=== PATIENT | female | born 1965 | race Hispanic/Latino ===

== ENCOUNTER 2017-07-08 10:03 | Outpatient (CLI) | payer OTHER | END 2017-07-08 10:04 | disposition home or self-care (01) | LOC: BICMAMMO 10:03 | PROVIDERS: ATTEND Obstetrics & Gynecology | DX: Z12.31 Encounter for screening mammogram for malignant neoplasm of breast (principal) | CPT/HCPCS: 77063; 77067 ==

== ENCOUNTER 2018-01-17 13:58 | Observation (INO) | payer OTHER ==
[2018-01-17] MEDS ORDERED: Nitroglycerin 2% Ointment 1 INCH/1 GM Packet ONE (14:25)
[2018-01-17 14:39] LABS: #Basophils 0.1 thou/uL (0.0-0.2); #Eosinphils 0.1 thou/uL (0.0-0.7); #Lymphocytes 4.4 thou/uL (1.20-3.40); #Monocytes 0.7 thou/uL (0.11-0.59); #Neutrophils 4.9 thou/uL (1.40-6.50); %Basophils 1.2 % (0.0-1.0); %Eosinophils 0.7 % (0.0-10.0); %Lymphocytes 43.3 % (21.0-51.0); %Monocytes 6.5 % (0.0-10.0); %Neutrophils 48.3 % (42.0-75.0); Hemoglobin 15.4 g/dL (12.0-16.0); Mean Corpuscular HGB CONC 34.1 g/dL (32.0-36.0); Mean Corpuscular Hemoglobin 29.2 pg (27.0-31.0); Mean Corpuscular Volume 85.7 fL (78.0-98.0); Mean Platelet Volume 8.6 fL (7.4-10.4); Platelet Count 316 thou/uL (130-400); RBC Distribution Width 11.2 % (11.5-14.5); Red Blood Cell (RBC) Count 5.27 mill/uL (4.20-5.40); White Blood Cell (WBC) Count 10.2 thou/uL (4.8-10.8)
[2018-01-17 14:40] LABS: ALT (SGPT) 27 U/L (8-55); AST (SGOT) 29 U/L (5-34); Albumin 4.6 g/dL (3.5-5.0); Alkaline Phosphatase 92 U/L (40-150); Anion Gap 17 mmol/L (10-20); BUN (Urea Nitrogen) 13 mg/dL (9.8-20.1); Bilirubin, Total 0.6 mg/dL (0.2-1.2); Calc. Creatinine Clearance 0 mL/min (70-130); Calcium 10.4 mg/dL (7.8-10.44); Carbon Dioxide 26 mmol/L (22-29); Chloride 99 mmol/L (98-107); Estimated GFR-MDRD 76; Globulin 3.8 g/dL (2.4-3.5); Glucose 114 mg/dL (70-105); Lipase 20 U/L (8-78); Potassium 3.3 mmol/L (3.5-5.1); Protein, Total 8.4 g/dL (6.0-8.3); Sodium 139 mmol/L (136-145)
[2018-01-17 14:41] LABS: CKMB 1.7 ng/mL (0-6.6); Troponin I Less than 0.010 ng/mL (< 0.028)
--- NOTE | 2018-01-17 15:40 | RAD ---
PORTABLE CHEST 01/17/18 PROVIDED CLINICAL HISTORY: Chest pain. FINDINGS: The cardiac and mediastinal silhouette is within normal limits. Lungs appear clear. No pleural fluid or pneumothorax apparent. IMPRESSION: No evidence for an acute cardiopulmonary process. POS: [facility]
[2018-01-17 17:46] LABS: Troponin I Less than 0.010 ng/mL (< 0.028)
[2018-01-17 18:47] VITALS: BMI 27.8
[2018-01-17] MEDS ORDERED: Ondansetron ODT 4 MG TAB PO PRN (20:11)
[2018-01-17] MEDS ORDERED: Acetaminophen 325 MG TAB PO PRN (20:11)
--- NOTE | 2018-01-17 20:27 | PDOC.FPRHP ---
- History of Present Illness Chief Complaint: Chest pain History of Present Illness: 52 yo F with PMH controlled HTN presented with chest pain. Started this morning at 10:20 am while she was getting ready. Concomitantly she had upper back pain as well. Pain was 10/10, sharp, on both sides of chest, not relieved with rest and no aggravating factors. She said the back pain happened at the same time as the chest pain and involved her whole upper back. She has had similar prior episodes for the past year and a half, but this episode was different because it lasted longer and had was more painful. After episode, patient was still experiencing a dull chest pressure. No PATEL, nausea, diaphoresis, SOB, syncope but did experience a warm flushing sensation from her neck to her ears that she has had multiple episodes of in the past. Denies other sxs. She did not take any meds. That morning she had an episode of non-bloody diarrhea and had a colonoscopy this past . ED Course: She was given aspirin 324mg and transdermal nitro, which did not relieve the chest pressure. - Allergies/Adverse Reactions Allergies Allergy/AdvReac Type Severity Reaction Status Date / Time Penicillins Allergy Verified 01/17/18 18:42 - Home Medications Medication Instructions Recorded Confirmed Type Losartan/Hydrochlorothiazide 1 tab PO DAILY 01/17/18 01/17/18 History [Arnoldzaar 100/25] - History PMHx: HTN PSHx: Appendectomy, hysterectomy FHx:HTN (whole family), Stent placement (Dad @ 70yo) & unspecified thyroid problems (dad) Social: Social drinker, denies tobacco and drug use - Review of Systems General: denies: fever/chills, weight/appetite/sleep changes, night sweats Eyes: denies: eye pain, vision changes ENT: denies: nasal congestion, rhinorrhea Respiratory: denies: cough, congestion, shortness of breath Cardiovascular: reports: chest pain. denies: palpitation, edema, orthopnea Gastrointestinal: reports: diarrhea (episode of diarrhea this am x1). denies: nausea, vomiting, abdominal pain, GI bleeding Genitourinary: denies: dysuria Skin: denies: rashes, lesions Musculoskeletal: denies: pain, tenderness Neurological: denies: syncope, seizure, weakness Psychological: denies: anxiety, depression - Vital signs BP: [123/70] HR: [73] RR: [18] Tmax: [97.7] Pox: [94]% on [RA] Wt: [77.11] - Physical Exam Constitutional: NAD, awake, alert and oriented HEENT: normocephalic and atraumatic, EOMI, conjunctiva clear, no scleral icterus , grossly normal vision, grossly normal hearing Neck: supple, no bruits Chest: no-tender to palpation Heart: RRR, normal S1/S2, no edema Lungs: CTAB, no respiratory distress Abdomen: soft, non-tender Neurological: CN II-XII intact Skin: no rash/lesions, good turgor, capillary refill <2 seconds Heme/Lymphatic: no unusual bruising or bleeding Psychiatric: normal mood and affect, good judgment and insight, intact recent and remote memory FMR H&P: Results - Labs Result Diagrams: 01/17/18 14:15 01/17/18 14:15 Lab results: WBC 10.2 thou/uL (4.8-10.8) 01/17/18 14:15 Hgb 15.4 g/dL (12.0-16.0) 01/17/18 14:15 Hct 45.1 % (36.0-47.0) 01/17/18 14:15 MCV 85.7 fL (78.0-98.0) 01/17/18 14:15 Plt Count 316 thou/uL (130-400) 01/17/18 14:15 Neutrophils % 48.3 % (42.0-75.0) 01/17/18 14:15 Sodium 139 mmol/L (136-145) 01/17/18 14:15 Potassium 3.3 mmol/L (3.5-5.1) L 01/17/18 14:15 Chloride 99 mmol/L (98-107) 01/17/18 14:15 Carbon Dioxide 26 mmol/L (22-29) 01/17/18 14:15 BUN 13 mg/dL (9.8-20.1) 01/17/18 14:15 Creatinine 0.79 mg/dL (0.6-1.1) 01/17/18 14:15 Glucose 114 mg/dL (70-105) H 01/17/18 14:15 Calcium 10.4 mg/dL (7.8-10.44) 01/17/18 14:15 Total Bilirubin 0.6 mg/dL (0.2-1.2) 01/17/18 14:15 AST 29 U/L (5-34) 01/17/18 14:15 ALT 27 U/L (8-55) 01/17/18 14:15 Alkaline Phosphatase 92 U/L (40-150) 01/17/18 14:15 CK-MB (CK-2) 1.7 ng/mL (0-6.6) 01/17/18 14:15 Serum Total Protein 8.4 g/dL (6.0-8.3) H 01/17/18 14:15 Albumin 4.6 g/dL (3.5-5.0) 01/17/18 14:15 Lipase 20 U/L (8-78) 01/17/18 14:15 - Radiology Interpretation Chest x-ray Status: image reviewed by me, report reviewed by me FMR H&P: A/P - Problem List (1) Atypical chest pain Current Visit: Yes Status: Acute Code(s): R07.89 - OTHER CHEST PAIN (2) Hypertension Current Visit: Yes Status: Acute Code(s): I10 - ESSENTIAL (PRIMARY) HYPERTENSION (3) Hyperglycemia Current Visit: Yes Status: Acute Code(s): R73.9 - HYPERGLYCEMIA, UNSPECIFIED (4) Hypokalemia Current Visit: Yes Status: Acute Code(s): E87.6 - HYPOKALEMIA - Plan 52 yo F here with atypical chest pain and ACS r/o. 1. Atypical chest pain -Heart score 3, unlikely ACS but plan to do ACS r/o -Trops have been negative but will continue to trend -Unable to read prior EKG because of quality, will repeat 12 lead EKG -Stress test in AM, NPO after midnight -Due to fhx of thyroid disorders and reported flushing, will check TSH w/ reflex -Will also check A1c, lipids -Atypical chest and back pain could be from referred diaphragmatic pain. With hx and 27.9 BMI plan to r/o GB pathology so will order RUQ U/S -Will start on aspirin 2. HTN -BPs stable for now -Will resume home meds of losartan/hctz 100/25mg 3. Hyperglycemia -Will check HbA1c 4. Hypokalemia -Will replace 20mEq -Will recheck labs in morning FMR H&P: Upper Level - Pertinent history 52 yo F with PMHx of HTN presented to the ER for eval of sharp chest pain that started at 1020 this AM while getting dressed. Radiation into her upper back. Locates pain as going across the the front of her mid chest. Denies any nausea but does endorse feeling flushed. Notes hx of similar pain in the past that is usually self limited, but this pain persisted prompting ER eval. Pain 04/15. Not relieved w/ nitro. No associated SOB, no worsening w/ exertion. Father w/ hx of CAD dx in his 70's. Does not smoke. Reports that she was still experiencing dull chest pressure in the same location. - Pertinent findings EKG - non-specific changes. No ST-segment elevation/depression concerning for acute ischemia Trop - WNL CK-MB - WNL D-Dimer - WNL Gen: NAD, resting in bed comfortably HEENT: PERRLA, EOMI CARD: RRR, no mumur. Pain not reproducible PULM: CTA-B/l, no wheezes or rhonci MSK: Moves all 4 ext equally - Plan Date/Time: 01/17/182022 IYolette MD, have evaluated this patient and agree with findings/plan as outlined by international nurse resident. Pertinent changes/additions are listed here. 52 y/o F w/ 1. Atypical chest pain r/o ACS (HEART 3) - DDX includes cardiac vs reflux vs symptomatic cholilithiasis - Cont. to trend trops. Neg x 2 at this point - Will obtain repeat EKG as outside ER w/ what appears to be movement artifact - Will obtain RUQ U/S to r/o gallstones as etiology w/ prolonged hx of these attacks and radiation into upper back which could suggest diaphragmatic irritation - Check A1c, FLP, TSH - Will start ASA 81 mg in the AM - Will also check Free T3 and Free T4 in the setting of endorsed thyroid issues in the past - NPO at midnight in prep for stress 2. HTN - Cont. w/ home BP meds
[2018-01-17 20:30] LABS: Troponin I Less than 0.010 ng/mL (< 0.028)
[2018-01-17] MEDS ORDERED: Losartan/Hydrochlorothiazide 100 mg/25 mg Tablet PO SCH (21:00)
[2018-01-17] MEDS ORDERED: Potassium Chloride 20 MEQ TAB PO SCH (21:15)
[2018-01-17] MEDS: Nitroglycerin 2% Ointment 1 INCH/1 GM Packet TOP SCH (21:32)
[2018-01-18 05:03] LABS: Hemoglobin A1c 5.6 % (4.0-6.0)
[2018-01-18 05:04] LABS: Cardiac Risk 3.7 (Less than 4.5)
[2018-01-18 05:05] LABS: ALT (SGPT) 20 U/L (8-55); AST (SGOT) 20 U/L (5-34); Alkaline Phosphatase 88 U/L (40-150); Anion Gap 11 mmol/L (10-20); BUN (Urea Nitrogen) 13 mg/dL (9.8-20.1); Bilirubin, Total 0.6 mg/dL (0.2-1.2); Calc. Creatinine Clearance 112 mL/min (70-130); Calcium 9.6 mg/dL (7.8-10.44); Carbon Dioxide 29 mmol/L (22-29); Chloride 101 mmol/L (98-107); Estimated GFR-MDRD 87; Globulin 3.2 g/dL (2.4-3.5); Glucose 102 mg/dL (70-105); Potassium 3.4 mmol/L (3.5-5.1); Protein, Total 7.2 g/dL (6.0-8.3); Sodium 138 mmol/L (136-145)
[2018-01-18 05:22] LABS: Thyroid Stimulating Hormone 4.9173 uIU/mL (0.35-4.94)
--- NOTE | 2018-01-18 05:23 | PDOC.FM ---
- Subjective Subjective: 52 yo F with pmh of controlled HTN presents with atypical chest pain. Overnight the dull discomfort she had after he chest pain has resolved. Denies SOB, nausea , edema, palpitations. - Objective MAR Reviewed: Yes Vital Signs & Weight: Vital Signs (12 hours) Temp Pulse Resp BP BP Pulse Ox 01/18/18 04:10 66 18 107/65 01/17/18 23:25 68 18 111/69 93 L 01/17/18 19:15 97.3 F L 86 16 01/17/18 19:14 97.3 F L 86 16 123/82 94 L Weight Weight 77.111 kg Result Diagrams: 01/18/18 04:06 01/18/18 04:06 Phys Exam - Physical Examination Constitutional: NAD HEENT: moist MMs Respiratory: no wheezing, clear to auscultation bilateral Cardiovascular: RRR, no significant murmur Gastrointestinal: soft, non-tender, positive bowel sounds Musculoskeletal: no edema, pulses present Neurological: moves all 4 limbs Psychiatric: normal affect, A&O x 3 Skin: cap refill <2 seconds Dx/Plan (1) Atypical chest pain Code(s): R07.89 - OTHER CHEST PAIN Status: Acute (2) Hyperglycemia Code(s): R73.9 - HYPERGLYCEMIA, UNSPECIFIED Status: Acute (3) Hypertension Code(s): I10 - ESSENTIAL (PRIMARY) HYPERTENSION Status: Chronic (4) Hypokalemia Code(s): E87.6 - HYPOKALEMIA Status: Acute - Plan Plan: 52 yo F with pmh of controlled HTN presents with atypical chest pain 1. Atypical chest pain - Heart score 3, unlikely ACS - Trops neg - Repeat EKG normal - NPO for Stress test today - FH of thyroid disorders & reported flushing, TSH normal - HgA1c: 5.6, lipids normal, Mg nml - Atypical chest and back pain could be from referred diaphragmatic pain. With hx and 27.9 BMI plan to r/o GB pathology so will order RUQ U/S - Continue Aspirin 2. HTN - BPs stable for now - Continue home losartan/hctz 100/25mg 3. Hyperglycemia - HbA1c 5.6 4. Hypokalemia - Replaced with 20mEq PO
[2018-01-18] MEDS ORDERED: Potassium Chloride 20 MEQ TAB PO SCH (05:30)
[2018-01-18 05:38] LABS: Hemoglobin 13.6 g/dL (12.0-16.0); Mean Corpuscular Hemoglobin 29.5 pg (27.0-31.0); Mean Corpuscular Volume 89.6 fL (78.0-98.0); Mean Platelet Volume 7.9 fL (7.4-10.4); Platelet Count 272 thou/uL (130-400); RBC Distribution Width 11.6 % (11.5-14.5); White Blood Cell (WBC) Count 7.8 thou/uL (4.8-10.8)
[2018-01-18 06:02] LABS: Band 1 % (5-11); Eosinophils 4 % (0-10); Lymphocytes 46 % (21-51); MDiff Complete? YES; Monocytes 13 % (0-10); Neutrophil 35 % (42-75); PLT Morphology Comment Appears Adequate; RBC Morphology Normal; Reactive Lymphocytes 1 % (0-10)
[2018-01-18] MEDS: Nitroglycerin 2% Ointment 1 INCH/1 GM Packet TOP SCH (06:58)
--- NOTE | 2018-01-18 08:58 | ULT ---
RIGHT UPPER QUADRANT ULTRASOUND: Date: PROVIDED CLINICAL HISTORY: Abdominal pain. FINDINGS: The visualized portions of the IVC and pancreas appear normal. Liver appears echogenic diffusely, com patible with fatty infiltration. No evidence for mass or intrahepatic biliary ductal dilatation. Gall bladder demonstrates sludge without evidence for stones, wall thickening, or pericholecystic fluid. S onographic Lockhart's sign is documented as negative. Right kidney demonstrates no hydronephrosis or ma ss. 1.0 cm simple cyst involves the right kidney. IMPRESSION: 1. Fatty infiltration of the liver. 2. Gallbladder sludge without evidence for acute findings related to the gallbladder. POS: [facility]
[2018-01-18] MEDS ORDERED: Losartan/Hydrochlorothiazide 100 mg/25 mg Tablet PO SCH (09:00)
[2018-01-18 10:42] LABS: Free T4 (Free Thyroxine) 1.17 ng/dL (0.70-1.48)
[2018-01-18 12:55] VITALS: BP 137/72; TEMP 98.6
--- NOTE | 2018-01-18 13:10 | NM ---
MYOCARDIAL PERFUSION SCAN: Date: 01/18/18 PROVIDED CLINICAL HISTORY: Chest pain. RADIOPHARMACEUTICAL: 30 mCi technetium-99m labeled sestamibi IV at stress. 10.2 mCi technetium-99m labeled sestamibi IV at rest. FINDINGS: There is normal, homogeneous distribution of radiotracer throughout the left ventricular myocardium a t both stress and rest. Gated data demonstrate normal myocardial wall motion and thickening with calc ulated LVEF of 79%. TID is 1.21. IMPRESSION: 1. No scintigraphic evidence for ischemia. 2. Calculated LVEF of 79%. POS: [facility]
--- NOTE | 2018-01-18 21:52 | ADD-HP ---
ADDENDUM Please see notes from Dr. Rachel Barbosa for which I concur. The patient was seen and evaluated and discussed with the residents by bedside. HISTORY OF PRESENT ILLNESS: This is a pleasant 52-year-old female who was having some chest pain a l ittle bit worrisome. She has some flipped T waves which seemed to improve and nitroglycerin in the E R. She has had some intermittent chest pain over the last year, but seems to be a little more freque ntly and is happening at rest. Admits to some reflux type issues. She is being admitted for rule ou t cardiac event, although all cardiac enzymes have been normal. PAST MEDICAL HISTORY, HOME MEDICATIONS, ALLERGIES, FAMILY HISTORY, SOCIAL HISTORY, SURGICAL HISTORY A ND REVIEW OF SYSTEMS: All per the resident's history and physical for which I concur. PHYSICAL EXAMINATION: VITAL SIGNS: Completely stable. Blood pressure is normal. The rest of the exam, ENT: Normal. CHEST: Clear. CARDIOVASCULAR: Regular rate and rhythm. ABDOMEN: Benign. EXTREMITIES: Show no edema. Cardiac enzymes normal. The rest of labs seem pretty normal. Again, EKG, some nonspecific ST changes over the anterior septa l region. ASSESSMENT AND PLAN: Chest pain. Plan is to do the stress test today and if it is normal, we will likely be able to send her out on re flux management, but obviously, we will get Cardiology involved.
--- NOTE | 2018-01-20 10:50 | EKG ---
Test Reason : STAT Blood Pressure : / mmHG Vent. Rate : 077 BPM Atrial Rate : 077 BPM P-R Int : 140 ms QRS Dur : 086 ms QT Int : 400 ms P-R-T Axes : 046 060 054 degrees QTc Int : 452 ms Normal sinus rhythm Nonspecific T wave abnormality Abnormal ECG Confirmed by KYREE DUNN ([id number]) on 01/20/2018 10:50:01 AM Referred By: QASIM Confirmed By:KYREE DUNN
--- NOTE | 2018-01-22 07:52 | DIS-2 ---
DATE OF ADMISSION: 01/17/2018 DATE OF DISCHARGE: 01/18/2018 RESIDENT: Hoda Eagle, PGY1 ADMITTING ATTENDING: Nikolas Rodriguez MD DISCHARGE ATTENDING: Nikolas Rodriguez MD CONSULTATIONS: None. PROCEDURES: 1. Abdominal ultrasound, fatty infiltration of the liver, gallbladder sludge without evidence for acute findings related to the gallbladder. 2. Stress test that showed no evidence of ischemia. Calculated LVEF of 97%. PRIMARY DIAGNOSIS: Atypical chest pain. SECONDARY DIAGNOSES: 1. Hyperglycemia. 2. Hypertension. 3. Hypokalemia. DISCHARGE MEDICATIONS: 1. Losartan/hydrochlorothiazide 100/125 mg daily. DISCONTINUED MEDICATIONS: None. HISTORY OF PRESENT ILLNESS AND HOSPITAL COURSE: Ms. Sun is a 52-year-old female with a past medical history of controlled hypertension, who presented with chest pain. Her heart score was 3. Trops were negative. Two EKGs were preformed that were both normal. She had a stress test that showed no signs of ischemia and a right upper quadrant ultrasound showing some biliary sludge and fatty liver infiltrate. Her hypertension was well controlled throughout her hospital stay with home medications. DISPOSITION: Stable. DISCHARGE INSTRUCTIONS: 1. Home. 2. Regular low sodium diet. 3. Activity: No restrictions. 4. Follow up if symptoms return. [facility]
== END 2018-01-18 14:40 | disposition home or self-care (01) ==
LOC: SCSER 13:58 → 2SW 18:07
PROVIDERS: ADMIT Family Medicine; ATTEND Family Medicine
DX: R07.89 Other chest pain (principal); I10 Essential (primary) hypertension; E87.6 Hypokalemia; Z88.0 Allergy status to penicillin; Z79.899 Other long term (current) drug therapy
CPT/HCPCS: 36415; 71045; 76705; 78452; 80053; 80061; 82553; 83036; 83690; 83735; 84439; 84443; 84481; 84484; 85007; 85025; 85027; 85379; 93005; 93010; 93017; A9500; G0378

== ENCOUNTER 2019-04-20 08:49 | Outpatient (CLI) | payer BC ==
--- NOTE | 2019-04-20 09:40 | RAD ---
EXAM: 3 views of the left foot HISTORY: Foot pain after falling one month ago COMPARISON: None FINDINGS: 3 views of the left foot shows no evidence of acute fracture or dislocation. No soft tissue swelling is seen. No degenerative changes are present. IMPRESSION: No evidence of acute osseous abnormality.
== END 2019-04-20 08:50 | disposition home or self-care (01) ==
LOC: BICRAD 08:49
PROVIDERS: ATTEND Family Medicine
DX: S92.902A Unspecified fracture of left foot, initial encounter for closed fracture (principal)

== ENCOUNTER 2019-06-07 07:44 | Outpatient (CLI) | payer BC ==
--- NOTE | 2019-06-07 08:22 | ULT ---
COMPLETE ABDOMEN ULTRASOUND INDICATION: Abdominal Pain TECHNIQUE: Grayscale, color Doppler and spectral Doppler were obtained of the abdomen. COMPARISON: Right upper quadrant ultrasound dated January 18, 2018 FINDINGS: Liver: Stable fatty liver Main portal vein: Patent with appropriate hepatopedal flow Pancreas: Visualized aspects appeared normal. Gallbladder: Normal. No sonographic Lockhart's sign reported. Common bile duct:3 mm. Right kidney: The right kidney measured 10.6 x 4.7 x 5.7 cm. No focal renal lesion or hydronephrosis is evident. Left kidney: The left kidney measured 10.9 x 5.1 x 4.4 cm. No focal renal lesion or hydronephrosis is demonstrated. Aorta and IVC: Appeared within normal limits. Spleen: 9.3cm in length. No focal splenic lesion is evident. Free fluid: None. IMPRESSION: 1. Stable fatty liver. 2. No additional acute abnormality seen sonographically within the abdomen
== END 2019-06-07 07:45 | disposition home or self-care (01) ==
LOC: ULT 07:44
PROVIDERS: ATTEND Family Medicine
DX: R10.84 Generalized abdominal pain (principal); K76.0 Fatty (change of) liver, not elsewhere classified
CPT/HCPCS: 93975

== ENCOUNTER 2025-02-03 14:58 | Outpatient (CLI) | payer BC | END 2025-02-03 14:59 | disposition home or self-care (01) | LOC: SCSRAD 14:58 | PROVIDERS: ATTEND Internal Medicine Rheumatology | DX: R06.02 Shortness of breath (principal); L29.9 Pruritus, unspecified | CPT/HCPCS: 71046 ==